=== PATIENT | female | born 1990 ===

== ENCOUNTER 2018-08-19 17:53 | Emergency (ER) | payer SELFPAY ==
[2018-08-19] MEDS ORDERED: guaiFENesin 200 mg/10 ml Syrup UD PO ONE (18:19)
[2018-08-19] MEDS ORDERED: Albuterol-Ipratrop 3 mg / 0.5 (3 ml) UD IH STA ×2 (18:19→20:22)
--- NOTE | 2018-08-19 18:23 | ED PDOC ---
Arrival/HPI - General Chief Complaint: Shortness Of Breath Time Seen by Provider: 08/19/18 18:00 Historian: Patient - History of Present Illness Narrative History of Present Illness (Text): 08/19/18 18:20 28 yo F w/ no significant PMH complains of 1 week h/o dry cough with SOB, chest tightness/congestion, chills. Otherwise: (-) fever, (+) mild R chest discomfort worse with taking deep breathes, (-) dyspnea, (-) hemoptysis, (-) upper back pain, (-) travel, (-) recent prolonged immobility, (-) smoker, (-) OCP use, (-) leg pain/swelling, (-) V/D. PMD none Past Medical History - Psychiatric Hx Substance Use: No - Surgical History Other/Comment: Lipo - Anesthesia Hx Anesthesia: Yes Hx Anesthesia Reactions: No Hx Malignant Hyperthermia: No Family/Social History Family/Social History: No Known Family HX Smoking Status: Never Smoked Hx Alcohol Use: No Hx Substance Use: No Allergies/Home Meds Allergies/Adverse Reactions: Allergies levofloxacin [From Levaquin] Allergy (Verified 08/19/18 23:32) ITCHING Penicillins Allergy (Verified 08/19/18 18:02) ANAPHYLAXIS Review of Systems - Review of Systems Constitutional: Fatigue. absent: Fevers Respiratory: SOB, Cough. absent: Sputum, Wheezing Cardiovascular: absent: Chest Pain, Palpitations, Edema Gastrointestinal: absent: Abdominal Pain, Nausea, Vomiting Genitourinary Female: absent: Dysuria, Frequency, Hematuria Musculoskeletal: absent: Arthralgias, Back Pain, Neck Pain Skin: absent: Rash, Skin Lesions Physical Exam Temperature: Afebrile Blood Pressure: Normal Pulse: Regular Respiratory Rate: Normal Appearance: Positive for: Well-Appearing, Non-Toxic, Comfortable Pain Distress: Mild Mental Status: Positive for: Alert and Oriented X 3 - Systems Exam Head: Present: Atraumatic, Normocephalic Pupils: Present: PERRL Extroacular Muscles: Present: EOMI Conjunctiva: Present: Normal Ears: Present: Normal, NORMAL TM. No: Erythema Mouth: Present: Moist Mucous Membranes Pharnyx: Present: Normal. No: ERYTHEMA, EXUDATE Neck: Present: Normal Range of Motion. No: Meningeal Signs, Lymphadenopathy Respiratory/Chest: Present: Clear to Auscultation, Good Air Exchange, Respiratory Distress (+mild labored breathing), Wheezes (+faint expiratory wheeze to the RLL), Rhonchi (+faint rhonchi to the RLL). No: Accessory Muscle Use, Decreased Breath Sounds Cardiovascular: Present: Regular Rate and Rhythm, Normal S1, S2. No: Murmurs Abdomen: No: Tenderness, Distention, Peritoneal Signs Back: Present: Normal Inspection Upper Extremity: Present: Normal Inspection. No: Cyanosis, Edema Lower Extremity: Present: Normal Inspection. No: Edema Neurological: Present: GCS=15, CN II-XII Intact, Speech Normal, Motor Func Grossly Intact, Normal Sensory Function Skin: Present: Warm, Dry, Normal Color. No: Rashes Psychiatric: Present: Alert, Oriented x 3, Normal Insight, Normal Concentration Medical Decision Making ED Course and Treatment: 08/19/18 18:22 Plan : - cg - CXR - Duoneb x1 - guaifenesin PO Repeat VS T 98.3 P 80 BP 113/76 R 16 O2100%RA CXR : possible early RLL infiltrate noted. On reevaluation, patient reports mild R sided chest pain, worse with deep breathing. On exam, patient remains awake alert and oriented 3 still with mild labored breathing. On exam, neck is supple, lungs still with faint wheeze and rhonchi to the RLL, cardiac regular rate and rhythm. Labs, duoneb x 1, NS IVF bolus, rapid flu, toradol IV and levaquin IV ordered (as the patient has a pcn allergy - reports developing swelling and rash with pcn). Labs reviewed : wbc, lactate normal, flu (-), d-dimer (-). On second reevaluation, patient reports improvement of symptoms, denies any CP or SOB, patient states that she feels much improved, patient is smiling and in good spirits. While IV levaquin was infusing, patient started to c/o itchiness and she developed a faint rash to her cheeks. On exam, patient remains awake alert and oriented 3 in no acute distress, sitting comfortably, breathing easy and unlabored, speaking in full sentences. IV levaquin d/c. VS T 97.9 P 94 R 18 BP 141/79 O2sat 98%RA. Lab results d/w the patient. Given po zithromax instead. Considering patient's marked improvement in appearance in the ER and normal labs, patient is stable for outpatient follow up, which she is in agreement with. Advised to follow up with the clinic in 1-2 days without fail. Advised to take medication as prescribed. Return to the emergency room at any time for any new or worsening symptoms. Patient states she fully agrees with and understands discharge instructions. States that she agrees with the plan and disposition. Verbalized and repeated discharge instructions and plan. I have given the patient opportunity to ask any additional questions. - RAD Interpretation Radiology Orders: 08/19/18 18:19 CHEST TWO VIEWS (PA/LAT) [RAD] Stat - Medication Orders Current Medication Orders: Albuterol/Ipratropium (Duoneb 3 Mg/0.5 Mg (3 Ml) Ud) 3 ml IH STAT STA Stop: 08/19/18 18:20 Guaifenesin (Robitussin) 200 mg PO ONCE ONE Stop: 08/19/18 18:20 - PA / RE EXAMINER / Resident Statement MD/DO has reviewed & agrees with the documentation as recorded. Disposition/Present on Arrival - Present on Arrival Any Indicators Present on Arrival: No History of DVT/PE: No History of Uncontrolled Diabetes: No Urinary Catheter: No History of Decub. Ulcer: No History Surgical Site Infection Following: None - Disposition Have Diagnosis and Disposition been Completed?: Yes Diagnosis: Pneumonia Disposition: HOME/ ROUTINE Disposition Time: 23:00 Patient Plan: Discharge Patient Problems: Current Active Problems Problem Status Onset Pneumonia Acute Condition: STABLE Discharge Instructions (ExitCare): Community-Acquired Pneumonia in Adults Additional Instructions: Thank you for letting us take care of you today. You were treated for pneumonia. The emergency medical care you received today was directed at your acute symptoms. If you were prescribed any medication, please fill it and take as directed. It may take several days for your symptoms to resolve. Return to the Emergency Department if your symptoms worsen, do not improve, or if you have any other problems. Please contact your doctor in 2 days for re-evaluation and follow up / or call one of the physicians/clinics you have been referred to that are listed on the Patient Visit Information form that is included in your discharge packet. Bring any paperwork you were given at discharge with you along with any medications you are taking to your follow up visit. Our treatment cannot replace ongoing medical care by a primary care provider (PCP) outside of the emergency department. Thank you for allowing the [facility] team to be part of your care today. If you had an X-Ray: A Radiologist will review the ED reading if any change in treatment is needed we will contact you. If you had a blood culture: It will take several days for the results, if any change in treatment is needed we will contact you. Prescriptions: Albuterol 0.083% [Albuterol Sulfate 3 Ml] 3 ml IH Q4 #100 neb Azithromycin [Zithromax] 250 mg PO DAILY #4 tab Guaifenesin 400 mg PO QID #20 tablet Nebulizer [Aeroeclipse II] 1 each MC DAILY #1 each Referrals: [facility] [Outside] - Follow up with primary [facility] [Outside] - Follow up with primary Forms: [employer] ([employer]), WORK NOTE
[2018-08-19] MEDS ORDERED: Sodium Chloride 0.9% 1,000 ML IV STA (20:23)
[2018-08-19 21:51] LABS: VENOUS BLOOD GAS BASE EXCESS -0.2 mmol/L (0.0-2.0); VENOUS BLOOD GAS PO2 33 mm/Hg (30-55); VENOUS BLOOD PH 7.37 (7.32-7.43)
[2018-08-19 21:52] LABS: BASO # 0.01 K/mm3 (0.0-2.0); BASO % 0.1 % (0.0-3.0); EOS # 0.2 (0.0-0.7); EOS % 2.4 % (1.5-5.0); GRAN # 5.67 (1.4-6.5); GRAN % 59.2 % (50.0-68.0); LYMPH # 3.3 (1.2-3.4); LYMPH % 34.8 % (22.0-35.0); MEAN CELL VOLUME 89.4 fl (80.0-105.0); MEAN CORPUSCULAR HEMOGLOBIN 29.6 pg (25.0-35.0); MEAN CORPUSCULAR HGB CONC 33.1 g/dl (31.0-37.0); MEAN PLATELET VOLUME 9.7 fl (7.0-11.0); MONO # 0.3 (0.1-0.6); MONO % 3.5 % (1.0-6.0); RBC 4.73 10^6/uL (3.5-6.1); RED CELL DISTRIBUTION WIDTH 14.3 % (11.5-14.5); WHITE BLOOD COUNT 9.6 10^3/uL (4.5-11.0)
[2018-08-19 22:02] LABS: ALB/GLOB RATIO 1.1 (1.1-1.8); ALBUMIN 4.3 g/dL (3.0-4.8); ALT/SGPT 30 U/L (7-56); AST/SGOT 34 U/L (14-36); BLOOD UREA NITROGEN 11 mg/dL (7-21); CALCIUM 9.1 mg/dL (8.4-10.5); GFR NON-AFRICAN AMERICAN > 60
[2018-08-19] MEDS ORDERED: levoFLOXacin 750 mg in D5W 150 ML BAG IVPB STA (22:12)
[2018-08-19 22:13] VITALS: RESP 18; TEMP 97.9; O2SAT 98
[2018-08-19 22:36] LABS: INR 1.04; PARTIAL THROMBOPLASTIN TIME 29.1 Seconds (25.1-36.5); PROTHROMBIN TIME 11.9 SECONDS (9.4-12.5)
[2018-08-19 23:31] VITALS: BP 120/78; PULSE 88
--- NOTE | 2018-08-20 09:25 | CARD ---
APPROVED REPORT Date of service: 08/19/2018 EKG Measurement Heart [id number] <Conclusion> Normal sinus rhythm Moderate voltage criteria for LVH, may be normal variant NSSTW changes
--- NOTE | 2018-08-20 11:32 | RAD ---
Date of service: 08/19/2018 HISTORY: Cough. COMPARISON: No prior. TECHNIQUE: Chest PA and lateral FINDINGS: LUNGS: No active pulmonary disease. PLEURA: No significant pleural effusion identified. No pneumothorax apparent. CARDIOVASCULAR: No aortic atherosclerotic calcification present. Normal cardiac size. No pulmonary vascular congestion. OSSEOUS STRUCTURES: No significant abnormalities. VISUALIZED UPPER ABDOMEN: Normal. OTHER FINDINGS: None. IMPRESSION: No active disease.
== END 2018-08-20 00:08 | disposition home or self-care (01) ==
LOC: ED 17:53
DX: J18.9 Pneumonia, unspecified organism (principal)
CPT/HCPCS: 71046; 80053; 82803; 83735; 85025; 85378; 85610; 85730; 87040; 87804; 93005; 96361; 96365; 96375; 99285; J1885; J2930; J7030